=== PATIENT | male | born 1970 | race American Indian/Alaskan Native ===

== ENCOUNTER 2018-09-12 11:15 | Day surgery (SDC) | payer MEDICAID ==
--- NOTE | 2018-09-12 10:03 | Anesthesia Consultation ---
Anesthesia Consult and Med Hx Date of service: 09/12/18 - Pre-Operative Health Status ASA Pre-Surgery Classification: ASA3 Proposed Anesthetic Plan: MAC - Cardiovascular System Hx Hypertension: Yes Hx Heart Attack/AMI: Yes
--- NOTE | 2018-09-12 10:03 | Anesthesia Day of Surgery ---
Anesthesia Day of Surgery - Day of Surgery Patient Examined: Yes Patient H&P Reviewed: Yes Patient is NPO: Yes
[~2018-09-12 11:15] MED LIST: NACL 0.9% 1000 ML 1,000 ML IV SCH
[2018-09-12] MEDS ORDERED: XYLOCAINE MPF 2% ONE (12:00)
[2018-09-12] MEDS ORDERED: DIPRIVAN 10 MG/ML IV ONE ×2 (14:32)
[2018-09-12] MEDS ORDERED: VERSED ONE (14:33)
--- NOTE | 2018-09-12 14:59 | Operative Report ---
Operative Report Operative Report: Date of procedure: 09/12/2018 Procedure: Colonoscopy. Attending physician: Sacha Willams MD School Clerk: Sacha Willams MD Indication: Patient is a 48-year-old male who presents for colonoscopy for colorectal cancer screening. A colonoscopy serves to evaluate patient so that treatment may be directed based on the findings. Consent: Informed consent was obtained after advising the patient and family regarding nature of this procedure, its indications, potential benefits as well as possible complications including but not limited to bleeding perforation and adverse reaction to medication, infection as well as other cardiopulmonary complications. An informed written and verbal consent was then obtained after due opportunity was provided for questions and answers. Monitoring: Patient was monitored continuously with pulse oximetry and electrocardiographic recordings as well as blood pressure recordings. Vital signs remained stable throughout this procedure with no untoward events. Preoperative assessment: Patient was assessed immediately prior to this procedure for capacity to tolerate monitored anesthesia care and moderate sedation as well as general anesthesia. Patient's ASA classification is 2, Mallampati class is 2, Hyomental distance is 3. Instrument: Olympus video colonoscope Medications: Propofol given intravenously in divided doses. For details please refer to anesthesia records. Description of procedure: Patient was placed in the left lateral decubitus position after achieving sedation, a digital rectal examination was performed following which the colonoscope was introduced into the anal verge and advanced to the cecum which was identified by the ileocecal valve, the appendiceal orifice, as well as by the cecal strap and direct transillumination. The colonoscope was subsequently withdrawn with careful inspection of all mucosal surfaces. Patient tolerated this procedure well and was subsequently taken to the recovery room. The following findings were noted. Findings: Patient had substantial retained stool in all sections of the colon but in particular in the cecum and ascending colon. The preparation was relatively poor. The patient had a few scattered diverticula in the ascending colon. On the retroflex view at the anal verge, patient had internal hemorrhoids. Impression: Retained stool Diverticular disease of the colon Internal hemorrhoids . Plan: High-fiber diet. Consider repeat colonoscopy in 1 year due to significant retained stool.
--- NOTE | 2018-09-12 15:00 | Discharge Summary ---
Short Stay Discharge Plan Activity: advance as tolerated Weight Bearing Status: Weight Bear as Tolerated Diet: regular Follow up with: TABATHA MIRANDA PA [Primary Care Provider] - 7 Days
[2018-09-12 15:32] VITALS: BP 131/77
== END 2018-09-12 11:16 | disposition home or self-care (01) ==
LOC: GIO 11:15
PROVIDERS: ATTEND Internal Medicine Gastroenterology
DX: Z12.11 Encounter for screening for malignant neoplasm of colon (principal); K64.8 Other hemorrhoids; K57.30 Diverticulosis of large intestine without perforation or abscess without bleeding; E78.00 Pure hypercholesterolemia, unspecified; I10 Essential (primary) hypertension; Z79.899 Other long term (current) drug therapy; Z79.82 Long term (current) use of aspirin
CPT/HCPCS: 45378; J2250; J2704; J7030